=== PATIENT | female | born 1970 | race Caucasian/White ===

== ENCOUNTER → 2016-08-15 08:11 | Outpatient (CLI) | payer BC ==
[2009-08-26 08:16] VITALS: BMI 29.9
== END | disposition home or self-care (01) ==
LOC: D.CT 08:11
DX: R59.9 Enlarged lymph nodes, unspecified (principal)

== ENCOUNTER → 2016-12-18 14:38 | Outpatient (CLI) | payer BC ==
[2009-08-26 08:16] VITALS: BMI 29.9
== END | disposition home or self-care (01) ==
LOC: D.MRI 14:38
DX: M54.2 Cervicalgia (principal)

== ENCOUNTER → 2017-02-02 08:34 | Outpatient (CLI) | payer BC ==
[2009-08-26 08:16] VITALS: BMI 29.9
--- NOTE | 2017-02-06 06:53 | EMG ---
PATIENT:VINCENT GUALLPA DATE OF SERVICE: 02/02/17 MEDICAL RECORD: [id number] DATE OF : [birth year] LOCATION: [facility] ADMISSION DATE: REFERRING PHYSICIAN: MARY ELLEN ANTHONY MD INTERPRETING PHYSICIAN: DAVI SMITH MD DATE OF SERVICE: 02/02/2017 REFERRED BY: Dr. Anthony as an outpatient. DATE OF : 1970. DATE OF EXAMINATION: 02/02/2017. ELECTROMYOGRAPHIC DATA: Electromyographic examination is limited to the left upper extremity and is limited to the nerve conduction studies only at the request of the referring physician. In the left upper extremity, left median motor stimulation elicits a compound motor action potential with a distal latency of 3.4 milliseconds, peak amplitude of 3 millivolts, and calculated conduction velocity of 52 meters per second. Left ulnar motor stimulation elicits a compound motor action potential with a distal latency of 2.7 milliseconds, peak amplitude of 9 millivolts, and calculated conduction velocity of 54 meters per second. Left ulnar motor stimulation across the elbow fails to elicit evidence of conduction block at this level. Antidromic left median sensory stimulation elicits a response with a distal latency of 3.5 milliseconds, amplitude of 23 microvolts and calculated conduction velocity of 52 meters per second. Antidromic left ulnar sensory stimulation elicits a response with a distal latency of 3.8 milliseconds, peak amplitude of 11 microvolts and calculated conduction velocity of 66 meters per second. The left median F wave has a latency of 27 milliseconds. Needle electrode examination is not performed at this time. INTERPRETATION: Electromyographic examination of the left upper extremity, limited to the nerve conduction studies only, is normal. TRANSINT:[id number] Voice Confirmation ID: [id number] DOCUMENT ID: [id number] DAVI SMITH MD at 0653 CC: [id number] DICTATION DATE: 02/03/17 0859 [employer] EXPERT: 02/03/17 1124 [facility] CLI 02/02/[address] [id number]
== END | disposition home or self-care (01) ==
LOC: D.CN 08:30
DX: R20.9 Unspecified disturbances of skin sensation (principal)

== ENCOUNTER 2018-08-26 09:00 | Outpatient (CLI) | payer BC ==
[2009-08-26 08:16] VITALS: BMI 29.9
== END 2018-08-26 10:00 | disposition home or self-care (01) ==
LOC: D.MAMMO 09:00
PROVIDERS: ATTEND Family Medicine
DX: Z12.31 Encounter for screening mammogram for malignant neoplasm of breast (principal)